=== PATIENT | female | born 1975 | race Caucasian/White ===

== ENCOUNTER 2018-05-25 15:58 | Outpatient (CLI) | payer OTHER ==
--- NOTE | 2018-05-25 17:16 | RAD ---
LEFT FOOT THREE VIEWS: 05/25/18 HISTORY: Left foot pain and swelling. FINDINGS/IMPRESSION: No fracture, dislocation or bony destruction identified. POS: [facility]
== END 2018-05-25 15:59 | disposition home or self-care (01) ==
LOC: SCSRAD 15:58
PROVIDERS: ATTEND Family Medicine
DX: M79.672 Pain in left foot (principal)

== ENCOUNTER 2022-08-25 09:02 | Outpatient (CLI) | payer BC, OTHER | END 2022-08-25 09:03 | disposition home or self-care (01) | LOC: SCSRAD 09:02 | PROVIDERS: ATTEND Family Medicine | DX: M25.551 Pain in right hip (principal); M16.11 Unilateral primary osteoarthritis, right hip ==